=== PATIENT | female | born 1950 | race Caucasian/White ===

== ENCOUNTER → 2017-11-21 | Outpatient (CLI) | payer MEDICARE, BC ==
--- NOTE | 2017-11-22 10:08 | MM ---
Reason for exam: screening (asymptomatic). Last mammogram was performed 2 years and 3 months ago. History: Patient is postmenopausal. Physical Findings: A clinical breast exam by your physician is recommended on an annual basis and results should be correlated with mammographic findings. MG 3D Screening Mammo W/Cad Bilateral CC and MLO view(s) were taken. Prior study comparison: August 10, 2015, bilateral MG screening mammo w CAD. August 06, 2014, bilateral MG screening mammo w CAD. There are scattered fibroglandular densities. There is chronic nodularity in the right breast. Asymmetric breast tissue in the left breast is stable. There is no discrete abnormality. ASSESSMENT: Benign, BI-RAD 2 RECOMMENDATION: Routine screening mammogram of both breasts in 1 year.
== END | disposition home or self-care (01) ==
LOC: RADMAMWWP 13:22
PROVIDERS: ATTEND Family Medicine
DX: Z12.31 Encounter for screening mammogram for malignant neoplasm of breast (principal)
CPT/HCPCS: 77063; 77067

== ENCOUNTER → 2019-04-23 | Outpatient (CLI) | payer MEDICARE ==
--- NOTE | 2019-04-24 14:02 | MM ---
Reason for exam: screening (asymptomatic). Last mammogram was performed 1 year and 5 months ago. History: Patient is postmenopausal. Physical Findings: A clinical breast exam by your physician is recommended on an annual basis and results should be correlated with mammographic findings. MG 3D Screening Mammo W/Cad Bilateral CC and MLO view(s) were taken. Prior study comparison: November 21, 2017, bilateral MG 3d screening mammo w/cad. August 10, 2015, bilateral MG screening mammo w CAD. There are scattered fibroglandular densities. There is a stable circumscribed right anterior depth lower outer quadrant mass. No suspicious abnormality. No significant changes when compared with prior studies. ASSESSMENT: Benign, BI-RAD 2 RECOMMENDATION: Routine screening mammogram of both breasts in 1 year.
== END | disposition home or self-care (01) ==
LOC: RADMAMWWP 16:48
PROVIDERS: ATTEND Family Medicine
DX: Z12.31 Encounter for screening mammogram for malignant neoplasm of breast (principal)
CPT/HCPCS: 77063; 77067

== ENCOUNTER → 2020-11-12 | Outpatient (CLI) | payer MEDICARE ==
--- NOTE | 2020-11-16 09:16 | MM ---
Reason for exam: screening (asymptomatic). Last mammogram was performed 1 year and 7 months ago. History: Patient is postmenopausal. Physical Findings: A clinical breast exam by your physician is recommended on an annual basis and results should be correlated with mammographic findings. MG 3D Screening Mammo W/Cad Bilateral CC and MLO view(s) were taken. Prior study comparison: April 23, 2019, bilateral MG 3d screening mammo w/cad. November 21, 2017, bilateral MG 3d screening mammo w/cad. The breast tissue is almost entirely fat. Previous mammotome biopsy in the right breast. There is chronic nodularity in the right breast. ASSESSMENT: Benign, BI-RAD 2 RECOMMENDATION: Routine screening mammogram of both breasts in 1 year.
== END | disposition home or self-care (01) ==
LOC: RADMAMWWP 11:33
PROVIDERS: ATTEND Family Medicine
DX: Z12.31 Encounter for screening mammogram for malignant neoplasm of breast (principal)
CPT/HCPCS: 77063; 77067

== ENCOUNTER 2021-02-07 16:04 | Emergency (ER) | payer MEDICARE ==
[2021-02-07 16:27] VITALS: RESP 18
--- NOTE | 2021-02-07 16:55 | ED ---
General Adult HPI - General Chief complaint: Upper Respiratory Infection Stated complaint: fever/cough/headache Time Seen by Provider: 02/07/21 16:27 Source: patient Mode of arrival: ambulatory Limitations: no limitations - History of Present Illness Initial comments: Dictation was produced using [employer] dictation software. please excuse any grammatical, word or spelling errors. This patient was cared for during a federal and state declared state of emergency secondary to Covid 19 Chief Complaint: 70-year-old female presents to the emergency department for Covid testing History of Present Illness: 70-year-old female presents to the emergency department for Covid testing. Patient having symptoms for approximately 7-10 days. Patient has been having cough, shortness of breath and fevers. Patient spoke about this with her primary care doctor and was directed to the emergency department to be evaluated. The ROS documented in this emergency department record has been reviewed and confirmed by me. Those systems with pertinent positive or negative responses have been documented in the HPI. All other systems are other negative and/or noncontributory. PHYSICAL EXAM: General Impression: Alert and oriented x3, not in acute distress HEENT: Normocephalic atraumatic, extra-ocular movements intact, pupils equal and reactive to light bilaterally, mucous membranes moist. Cardiovascular: Heart regular rate and rhythm Chest: Able to complete full sentences, no retractions, no tachypnea Abdomen: abdomen soft, non-tender, non-distended, no organomegaly Musculoskeletal: Pulses present and equal in all extremities, no peripheral edema Motor: no focal deficits noted Neurological: CN II-XII grossly intact, no focal motor or sensory deficits noted Skin: Intact with no visualized rashes Psych: Normal affect and mood ED course: 70-year-old female presents emergency department for Covid testing. Signs upon arrival are within acceptable limits. Patient is not hypoxic or tachycardic. Current test is negative. Chest x-ray is nonacute. Patient's clinical presentation consistent with upper respiratory infection. Patient be discharged. - Related Data Home Medications Medication Instructions Recorded Confirmed Aspirin EC [Ecotrin Low Dose] 81 mg PO DAILY 03/18/14 08/29/16 Simvastatin [Zocor] 20 mg PO DAILY 03/18/14 08/29/16 Multivit with Calcium,Iron,Min 1 tab PO DAILY 08/21/16 08/29/16 [Women's Daily Multivitamin] atenoloL [Tenormin] 100 mg PO DAILY 08/21/16 08/29/16 Previous Rx's Medication Instructions Recorded QUEtiapine [SEROquel] 200 mg PO HS #30 tab 08/28/16 Allergies Allergy/AdvReac Type Severity Reaction Status Date / Time No Known Allergies Allergy Verified 02/07/21 16:26 Review of Systems ROS Statement: Those systems with pertinent positive or pertinent negative responses have been documented in the HPI. ROS Other: All systems not noted in ROS Statement are negative. Past Medical History Past Medical History: Hyperlipidemia, Hypertension History of Any Multi-Drug Resistant Organisms: None Reported Past Surgical History: Appendectomy, Hysterectomy Additional Past Surgical History / Comment(s): Partial hysterectomy, appendectomy, colonoscopy was 6 years ago was normal. Past Psychological History: Anxiety, Schizoaffective Disorder, Schizophrenia Smoking Status: Never smoker Past Alcohol Use History: None Reported Past Drug Use History: None Reported - Past Family History Mother Family Medical History: No Reported History (Mother at age of 88 from old age.) Father Family Medical History: No Reported History (Father at age of 88 from old age.) Brother(s) Family Medical History: Diabetes Mellitus (Patient had 2 brothers one of them is alive the other one in [facility] from diabetes complications.) Sister(s) Family Medical History: No Reported History (Patient has one sister no major medical problems) Son(s) Family Medical History: No Reported History (Patient has 2 sons no major medical problems) Daughter(s) Family Medical History: No Reported History (Patient has one daughter no major medical problems) General Exam Limitations: no limitations Course Vital Signs 02/07/21 02/07/21 16:24 17:27 Temperature 98.4 F 98 F Pulse Rate 90 85 Respiratory 18 18 Rate Blood Pressure 188/76 189/79 O2 Sat by Pulse 96 97 Oximetry Medical Decision Making - Lab Data Lab Results 02/07/21 Range/Units 16:36 Coronavirus (PCR) Not Detected (Not Detectd) Disposition Clinical Impression: URI (upper respiratory infection) Disposition: HOME SELF-CARE Condition: Good Instructions (If sedation given, give patient instructions): Upper Respiratory Infection (ED) Is patient prescribed a controlled substance at d/c from ED?: No Referrals: Tino Snow MD [Primary Care Provider] - 1-2 days Time of Disposition: 17:35
--- NOTE | 2021-02-07 17:26 | XR ---
EXAMINATION TYPE: XR chest 1V portable DATE OF EXAM: 02/07/2021 COMPARISON: Chest x-ray dated 06/19/2015 HISTORY: Upper respiratory infection TECHNIQUE: Single frontal view of the chest is obtained. FINDINGS: There is no focal air space opacity, pleural effusion, or pneumothorax seen. The cardiac silhouette size is within normal limits, stable. Patient is rotated. There is eventration of right he midiaphragm as on prior exam. The osseous structures are intact. IMPRESSION: No acute process.
[2021-02-07 17:32] VITALS: BP 189/79; PULSE 85; TEMP 98
== END 2021-02-07 17:43 | disposition home or self-care (01) ==
LOC: EC 16:04
DX: J06.9 Acute upper respiratory infection, unspecified (principal); E78.5 Hyperlipidemia, unspecified; I10 Essential (primary) hypertension; F25.9 Schizoaffective disorder, unspecified; Z90.89 Acquired absence of other organs; Z90.710 Acquired absence of both cervix and uterus; Z79.82 Long term (current) use of aspirin; Z20.822 Contact with and (suspected) exposure to COVID-19
CPT/HCPCS: 71045; 87635; 99285

== ENCOUNTER 2021-04-19 18:56 | Emergency (ER) | payer MEDICARE ==
[2021-04-19 19:09] VITALS: BP 164/85; PULSE 61; RESP 20; TEMP 98.4
[2021-04-19] MEDS ORDERED: PANTOPRAZOLE 40 MG/10 ML VIAL IVP STA (19:49)
--- NOTE | 2021-04-19 19:51 | ED ---
General Adult HPI - General Chief complaint: Recheck/Abnormal Lab/Rx Stated complaint: vomited blood Time Seen by Provider: 04/19/21 19:26 Source: patient Mode of arrival: ambulatory Limitations: no limitations - History of Present Illness Initial comments: 70-year-old female presents to the emergency room for a chief complaint of spitting out blood. Patient reports around 17 hours ago or 2 AM she woke up. She went to spit in the sink and spit out blood. Patient states this did happen once before but it was several years ago. Patient denies cough. Denies nausea vomiting. Denies any abdominal pain. Patient did not have any recurrent episodes of this. Patient wanted to wait until her son was out of work so we could bring her here to the ER. Patient denies any dark or red stools. Denies lightheadedness. Denies chest pain or shortness of breath. Patient has no other complaints at this time including shortness of breath, chest pain, a bdominal pain, nausea or vomiting, headache, or visual changes. - Related Data Home Medications Medication Instructions Recorded Confirmed Aspirin EC [Ecotrin Low Dose] 81 mg PO DAILY 03/18/14 04/19/21 Simvastatin [Zocor] 20 mg PO HS 03/18/14 04/19/21 atenoloL [Tenormin] 100 mg PO DAILY 08/21/16 04/19/21 Losartan Potassium [Cozaar] 50 mg PO DAILY 04/19/21 04/19/21 Thioridazine HCl [Mellaril] 50 mg PO HS 04/19/21 04/19/21 Vitamin B Complex 1 cap PO DAILY 04/19/21 04/19/21 Allergies Allergy/AdvReac Type Severity Reaction Status Date / Time No Known Allergies Allergy Verified 04/19/21 19:52 Review of Systems ROS Statement: Those systems with pertinent positive or pertinent negative responses have been documented in the HPI. ROS Other: All systems not noted in ROS Statement are negative. Past Medical History Past Medical History: Hyperlipidemia, Hypertension History of Any Multi-Drug Resistant Organisms: None Reported Past Surgical History: Appendectomy, Hysterectomy Additional Past Surgical History / Comment(s): Partial hysterectomy, appendectomy, colonoscopy was 6 years ago was normal. Past Psychological History: Anxiety, Schizoaffective Disorder, Schizophrenia Smoking Status: Never smoker Past Alcohol Use History: Rare Past Drug Use History: None Reported - Past Family History Mother Family Medical History: No Reported History (Mother at age of 88 from old age.) Father Family Medical History: No Reported History (Father at age of 88 from old age.) Brother(s) Family Medical History: Diabetes Mellitus (Patient had 2 brothers one of them is alive the other one in [facility] from diabetes complications.) Sister(s) Family Medical History: No Reported History (Patient has one sister no major medical problems) Son(s) Family Medical History: No Reported History (Patient has 2 sons no major medical problems) Daughter(s) Family Medical History: No Reported History (Patient has one daughter no major medical problems) General Exam Limitations: no limitations General appearance: alert, in no apparent distress Head exam: Present: atraumatic, normocephalic, normal inspection Eye exam: Present: normal appearance, PERRL, EOMI. Absent: scleral icterus, conjunctival injection, periorbital swelling ENT exam: Present: normal exam, mucous membranes moist Neck exam: Present: normal inspection, full ROM. Absent: tenderness Respiratory exam: Present: normal lung sounds bilaterally. Absent: respiratory distress, wheezes Cardiovascular Exam: Present: regular rate, normal rhythm, normal heart sounds GI/Abdominal exam: Present: soft, normal bowel sounds. Absent: distended, tenderness, guarding, rebound, rigid Course Vital Signs 04/19/21 19:06 Temperature 98.4 F Pulse Rate 61 Respiratory 20 Rate Blood Pressure 164/85 O2 Sat by Pulse 98 Oximetry Medical Decision Making - Medical Decision Making Vitals are stable. Patient is well-appearing. Patient denies coughing up blood or throwing up blood. Just states that she spit it out in the sink earlier today. No recurrent episodes. CBC unremarkable. Hemoglobin stable at 13. CMP unremarkable. Chest x-ray shows no acute process. At this time patient is stable for outpatient follow-up. She can return here for any worsening symptoms. - Lab Data Result diagrams: 04/19/21 20:26 04/19/21 20:26 Lab Results 04/19/21 04/19/21 Range/Units 20:26 20:26 WBC 7.0 (3.8-10.6) k/uL RBC 4.03 (3.80-5.40) m/uL Hgb 13.0 (11.4-16.0) gm/dL Hct 39.2 (34.0-46.0) % MCV 97.4 (80.0-100.0) fL MCH 32.2 (25.0-35.0) pg MCHC 33.0 (31.0-37.0) g/dL RDW 12.8 (11.5-15.5) % Plt Count 198 (150-450) k/uL MPV 9.0 Neutrophils % 55 % Lymphocytes % 33 % Monocytes % 6 % Eosinophils % 4 % Basophils % 1 % Neutrophils # 3.8 (1.3-7.7) k/uL Lymphocytes # 2.3 (1.0-4.8) k/uL Monocytes # 0.4 (0-1.0) k/uL Eosinophils # 0.3 (0-0.7) k/uL Basophils # 0.1 (0-0.2) k/uL Sodium 139 (137-145) mmol/L Potassium 4.5 (3.5-5.1) mmol/L Chloride 104 (98-107) mmol/L Carbon Dioxide 31 H (22-30) mmol/L Anion Gap 4 mmol/L BUN 14 (7-17) mg/dL Creatinine 0.83 (0.52-1.04) mg/dL Est GFR (CKD-EPI)AfAm 83 (>60 ml/min/1.73 sqM) Est GFR (CKD-EPI)NonAf 72 (>60 ml/min/1.73 sqM) Glucose 98 (74-99) mg/dL Calcium 9.4 (8.4-10.2) mg/dL Total Bilirubin 0.3 (0.2-1.3) mg/dL AST 34 (14-36) U/L ALT 11 (4-34) U/L Alkaline Phosphatase 70 (38-126) U/L Total Protein 7.1 (6.3-8.2) g/dL Albumin 4.2 (3.5-5.0) g/dL Disposition Clinical Impression: Hemoptysis Disposition: HOME SELF-CARE Condition: Good Instructions (If sedation given, give patient instructions): Hemoptysis (ED) Additional Instructions: Please follow-up with your doctor in one to 2 days. Return to the emergency room for any worsening symptoms. Is patient prescribed a controlled substance at d/c from ED?: No Referrals: Tino Snow MD [Primary Care Provider] - 1-2 days Time of Disposition: 21:16
--- NOTE | 2021-04-19 20:18 | XR ---
EXAMINATION TYPE: XR chest 2V DATE OF EXAM: 04/19/2021 COMPARISON: 02/07/2021 HISTORY: Hemoptysis TECHNIQUE: 2 views FINDINGS: Heart and mediastinum are normal. Lungs are clear. Diaphragm is normal. Bony thorax appears normal. IMPRESSION: Normal chest. No change.
[2021-04-19 20:46] LABS: Basophils # (A) 0.1 k/uL (0-0.2); Basophils % (A) 1 %; Eosinophils # (A) 0.3 k/uL (0-0.7); Eosinophils % (A) 4 %; HCT 39.2 % (34.0-46.0); Lymphocytes # (A) 2.3 k/uL (1.0-4.8); Lymphocytes % (A) 33 %; MCH 32.2 pg (25.0-35.0); MCV 97.4 fL (80.0-100.0); Monocytes # (A) 0.4 k/uL (0-1.0); Monocytes % (A) 6 %; Neutrophils # (A) 3.8 k/uL (1.3-7.7); Neutrophils % (A) 55 %; Platelet Count 198 k/uL (150-450); RBC 4.03 m/uL (3.80-5.40); RDW 12.8 % (11.5-15.5)
[2021-04-19 21:11] LABS: Albumin 4.2 g/dL (3.5-5.0); Calcium 9.4 mg/dL (8.4-10.2); Potassium 4.5 mmol/L (3.5-5.1); Total Bilirubin 0.3 mg/dL (0.2-1.3); Total Protein 7.1 g/dL (6.3-8.2)
== END 2021-04-19 21:30 | disposition home or self-care (01) ==
LOC: EC 18:56
DX: R04.2 Hemoptysis (principal); I10 Essential (primary) hypertension; E78.5 Hyperlipidemia, unspecified; F25.9 Schizoaffective disorder, unspecified; Z79.82 Long term (current) use of aspirin; Z79.899 Other long term (current) drug therapy; Z83.3 Family history of diabetes mellitus
CPT/HCPCS: 96374; 99285; 36415; 80053; 85025; 71046; C9113

== ENCOUNTER 2021-09-03 17:27 | Emergency (ER) | payer MEDICARE ==
--- NOTE | 2021-09-03 21:31 | XR ---
EXAMINATION TYPE: XR chest 2V DATE OF EXAM: 09/03/2021 COMPARISON: 04/19/2021 HISTORY: Cough TECHNIQUE: FINDINGS: Heart and mediastinum are normal. Lungs are clear of infiltrate. There is slight blunting o f the posterior costophrenic angles on the lateral view. There are no hilar masses. Bony thorax is in tact. IMPRESSION: Minimal posterior pleural reaction is similar to old exam. Normal heart.
--- NOTE | 2021-09-03 21:35 | ED ---
URI HPI - General Chief Complaint: Upper Respiratory Infection Stated Complaint: SOB Time Seen by Provider: 09/03/21 19:15 Source: patient, RN notes reviewed Mode of arrival: ambulatory Limitations: no limitations - History of Present Illness Initial Comments: Patient is a 71-year-old female that presents to the emergency department complaining of upper respiratory tract symptoms for the past couple days. She notes she has a cough. Patient denied any other issues or complaints. She was otherwise well-appearing. She can emergency room to get evaluated for Covid. She denied chest pain shortness of breath headache nausea vomiting diarrhea constipation fever fatigue chills. - Related Data Home Medications Medication Instructions Recorded Confirmed Aspirin EC [Ecotrin Low Dose] 81 mg PO DAILY@1500 03/18/14 09/03/21 Simvastatin [Zocor] 20 mg PO HS 03/18/14 09/03/21 atenoloL [Tenormin] 100 mg PO DAILY 08/21/16 09/03/21 Losartan Potassium [Cozaar] 50 mg PO DAILY 04/19/21 09/03/21 Thioridazine HCl [Mellaril] 50 mg PO HS 04/19/21 09/03/21 Vitamin B Complex 1 cap PO DAILY@1500 04/19/21 09/03/21 Allergies Allergy/AdvReac Type Severity Reaction Status Date / Time No Known Allergies Allergy Verified 09/03/21 20:58 Review of Systems ROS Statement: Those systems with pertinent positive or pertinent negative responses have been documented in the HPI. ROS Other: All systems not noted in ROS Statement are negative. Past Medical History Past Medical History: Hyperlipidemia, Hypertension History of Any Multi-Drug Resistant Organisms: None Reported Past Surgical History: Appendectomy, Hysterectomy Additional Past Surgical History / Comment(s): Partial hysterectomy, appendectom y, colonoscopy was 6 years ago was normal. Past Psychological History: Anxiety, Schizoaffective Disorder, Schizophrenia Smoking Status: Never smoker Past Alcohol Use History: Rare Past Drug Use History: None Reported - Past Family History Mother Family Medical History: No Reported History (Mother at age of 88 from old age.) Father Family Medical History: No Reported History (Father at age of 88 from old age.) Brother(s) Family Medical History: Diabetes Mellitus (Patient had 2 brothers one of them is alive the other one in [facility] from diabetes complications.) Sister(s) Family Medical History: No Reported History (Patient has one sister no major medical problems) Son(s) Family Medical History: No Reported History (Patient has 2 sons no major medical problems) Daughter(s) Family Medical History: No Reported History (Patient has one daughter no major medical problems) General Exam Limitations: no limitations General appearance: alert, in no apparent distress, obese Head exam: Present: atraumatic, normocephalic, normal inspection Eye exam: Present: normal appearance, PERRL, EOMI. Absent: scleral icterus, conjunctival injection, periorbital swelling ENT exam: Present: normal exam, mucous membranes moist Neck exam: Present: normal inspection Respiratory exam: Present: normal lung sounds bilaterally. Absent: respiratory distress, wheezes, rales, rhonchi, stridor Cardiovascular Exam: Present: regular rate, normal rhythm, normal heart sounds. Absent: systolic murmur, diastolic murmur, rubs, gallop, clicks Extremities exam: Present: normal inspection, full ROM, normal capillary refill. Absent: tenderness, pedal edema, joint swelling, calf tenderness Neurological exam: Present: alert, oriented X3 Psychiatric exam: Present: normal affect, normal mood Skin exam: Present: warm, dry, intact, normal color. Absent: rash Course Vital Signs 09/03/21 09/03/21 17:38 20:16 Temperature 98.6 F 97.8 F Pulse Rate 76 74 Respiratory 20 20 Rate Blood Pressure 186/102 178/75 O2 Sat by Pulse 98 96 Oximetry Medical Decision Making - Medical Decision Making 71-year-old female with a cough for the past several days. Covid test, chest and she ordered. Covid test negative. Chest x-ray shows no change from previous study. Patient most likely has an upper respiratory tract infection caused by another virus other than Covid. Case discussed with Dr. Aguiar, patient discharge home with conservative management and follow-up to primary care. - Lab Data Lab Results 09/03/21 Range/Units 17:43 Coronavirus (PCR) Not Detected (Not Detectd) - Radiology Data Radiology results: report reviewed, image reviewed Chest x-ray: Minimal posterior pleural reaction is similar to old exam normal heart. Disposition Clinical Impression: Acute upper respiratory infection Disposition: HOME SELF-CARE Condition: Stable Instructions (If sedation given, give patient instructions): Upper Respiratory Infection (ED) Additional Instructions: Please return to the Emergency Department if symptoms worsen or any other concerns. Follow-up with primary care 1 to 2 days. Take Tylenol Motrin as needed for any aches pains or fevers. Can take [id number] cough medicine as needed. Is patient prescribed a controlled substance at d/c from ED?: No Referrals: Tino Snow MD [Primary Care Provider] - 1-2 days Time of Disposition: 21:35
[2021-09-03 21:42] VITALS: BP 168/74; PULSE 87; RESP 19; TEMP 98.4
== END 2021-09-03 21:39 | disposition home or self-care (01) ==
LOC: EC 17:27
DX: J06.9 Acute upper respiratory infection, unspecified (principal); I10 Essential (primary) hypertension; E78.5 Hyperlipidemia, unspecified; F41.9 Anxiety disorder, unspecified; F25.9 Schizoaffective disorder, unspecified; Z20.822 Contact with and (suspected) exposure to COVID-19; Z79.82 Long term (current) use of aspirin; Z90.49 Acquired absence of other specified parts of digestive tract; Z90.710 Acquired absence of both cervix and uterus
CPT/HCPCS: 71046; 87635; 99283

== ENCOUNTER 2021-09-06 12:13 | Emergency (ER) | payer MEDICARE ==
[2021-09-06 13:12] VITALS: RESP 18; TEMP 98.8
[2021-09-06] MEDS ORDERED: ALBUTEROL HFA INHALER INHALATION STA (14:01)
--- NOTE | 2021-09-06 14:01 | ED ---
General Adult HPI - General Chief complaint: Upper Respiratory Infection Stated complaint: revisit - SOB, congestion Time Seen by Provider: 09/06/21 13:31 Source: patient Mode of arrival: ambulatory Limitations: no limitations - History of Present Illness Initial comments: 71-year-old female with a past medical history of hyperlipidemia, hypertension presents to the emergency room for shortness of breath. Patient developed shortness of breath 5 days ago or so. She also has a cough. States her ribs hurt when she coughs. States she was seen here a couple days ago and tested negative for COVID-19 and had a normal x-ray. However her symptoms are persisting. She is afebrile.Patient has no other complaints at this time including chest pain, abdominal pain, nausea or vomiting, headache, or visual changes. - Related Data Home Medications Medication Instructions Recorded Confirmed Aspirin EC [Ecotrin Low Dose] 81 mg PO DAILY@1500 03/18/14 09/03/21 Simvastatin [Zocor] 20 mg PO HS 03/18/14 09/03/21 atenoloL [Tenormin] 100 mg PO DAILY 08/21/16 09/03/21 Losartan Potassium [Cozaar] 50 mg PO DAILY 04/19/21 09/03/21 Thioridazine HCl [Mellaril] 50 mg PO HS 04/19/21 09/03/21 Vitamin B Complex 1 cap PO DAILY@1500 04/19/21 09/03/21 Previous Rx's Medication Instructions Recorded Albuterol Inhaler [Ventolin Hfa 2 puff INHALATION RT-QID PRN #8 gm 09/06/21 Inhaler] Azithromycin [Zithromax Z-pack (6 250 mg PO DIRECTED #6 tab 09/06/21 tabs)] predniSONE 50 mg PO DAILY #5 tablet 09/06/21 Allergies Allergy/AdvReac Type Severity Reaction Status Date / Time No Known Allergies Allergy Verified 09/06/21 13:13 Review of Systems ROS Statement: Those systems with pertinent positive or pertinent negative responses have been documented in the HPI. ROS Other: All systems not noted in ROS Statement are negative. Past Medical History Past Medical History: Hyperlipidemia, Hypertension History of Any Multi-Drug Resistant Organisms: None Reported Past Surgical History: Appendectomy, Hysterectomy Additional Past Surgical History / Comment(s): Partial hysterectomy, appendectomy, colonoscopy was 6 years ago was normal. Past Psychological History: Anxiety, Schizoaffective Disorder, Schizophrenia Smoking Status: Never smoker Past Alcohol Use History: Rare Past Drug Use History: None Reported - Past Family History Mother Family Medical History: No Reported History (Mother at age of 88 from old age.) Father Family Medical History: No Reported History (Father at age of 88 from old age.) Brother(s) Family Medical History: Diabetes Mellitus (Patient had 2 brothers one of them is alive the other one in [facility] from diabetes complications.) Sister(s) Family Medical History: No Reported History (Patient has one sister no major medical problems) Son(s) Family Medical History: No Reported History (Patient has 2 sons no major medical problems) Daughter(s) Family Medical History: No Reported History (Patient has one daughter no major medical problems) General Exam Limitations: no limitations General appearance: alert, in no apparent distress Head exam: Present: atraumatic Eye exam: Present: normal appearance, PERRL, EOMI. Absent: scleral icterus, conjunctival injection ENT exam: Present: normal exam, mucous membranes moist Neck exam: Present: normal inspection, full ROM. Absent: tenderness Respiratory exam: Present: decreased breath sounds. Absent: respiratory distress, wheezes, rales, rhonchi Cardiovascular Exam: Present: regular rate, normal rhythm, normal heart sounds GI/Abdominal exam: Present: soft, normal bowel sounds. Absent: distended, tenderness Neurological exam: Present: alert Course Vital Signs 09/06/21 13:09 Temperature 98.8 F Pulse Rate 65 Respiratory 18 Rate Blood Pressure 129/88 O2 Sat by Pulse 96 Oximetry EKG Findings - EKG Comments: EKG Findings:: Normal sinus rhythm, ventricular rate 60, ME interval 160, QTC 424 Medical Decision Making - Medical Decision Making vitals are stable. CBC and CMP are unremarkable. EKG does not show any ST elevation in troponin is negative. Patient does not have any typical chest pain and only has pain when she coughs. COVID-19 again negative. CTA was obtained which showed no evidence of PE. However there are small bilateral effusions with basilar atelectasis favored over pneumonia. Bronchiectasis. There is also a small pulmonary nodule that needs to have follow-up. Patient aware of this. Patient was given antibiotics as she has had a cough and shortness of breath for almost a week and there is the possibility of pneumonia on CT. She was also started on steroids and an inhaler for her decreased lung sounds. She will follow up with her doctor. She will return here for any worsening symptoms. - Lab Data Result diagrams: 09/06/21 14:36 09/06/21 14:36 Lab Results 09/06/21 09/06/21 09/06/21 Range/Units 14:09 14:36 14:36 WBC 5.2 (3.8-10.6) k/uL RBC 4.11 (3.80-5.40) m/uL Hgb 13.3 (11.4-16.0) gm/dL Hct 40.2 (34.0-46.0) % MCV 97.8 (80.0-100.0) fL MCH 32.3 (25.0-35.0) pg MCHC 33.1 (31.0-37.0) g/dL RDW 11.9 (11.5-15.5) % Plt Count 173 (150-450) k/uL MPV 8.9 Neutrophils % 57 % Lymphocytes % 30 % Monocytes % 7 % Eosinophils % 3 % Basophils % 1 % Neutrophils # 3.0 (1.3-7.7) k/uL Lymphocytes # 1.6 (1.0-4.8) k/uL Monocytes # 0.4 (0-1.0) k/uL Eosinophils # 0.2 (0-0.7) k/uL Basophils # 0.0 (0-0.2) k/uL PT 9.6 (9.0-12.0) sec INR 0.9 (<1.2) APTT 23.8 (22.0-30.0) sec D-Dimer 0.80 H (<0.60) mg/L FEU Sodium (137-145) mmol/L Potassium (3.5-5.1) mmol/L Chloride (98-107) mmol/L Carbon Dioxide (22-30) mmol/L Anion Gap mmol/L BUN (7-17) mg/dL Creatinine (0.52-1.04) mg/dL Est GFR (CKD-EPI)AfAm (>60 ml/min/1.73 sqM) Est GFR (CKD-EPI)NonAf (>60 ml/min/1.73 sqM) Glucose (74-99) mg/dL Calcium (8.4-10.2) mg/dL Total Bilirubin (0.2-1.3) mg/dL AST (14-36) U/L ALT (4-34) U/L Alkaline Phosphatase (38-126) U/L Troponin I (0.000-0.034) ng/mL NT-Pro-B Natriuret Pep pg/mL Total Protein (6.3-8.2) g/dL Albumin (3.5-5.0) g/dL Coronavirus (PCR) Not Detected (Not Detectd) 09/06/21 09/06/21 09/06/21 Range/Units 14:36 14:36 14:36 WBC (3.8-10.6) k/uL RBC (3.80-5.40) m/uL Hgb (11.4-16.0) gm/dL Hct (34.0-46.0) % MCV (80.0-100.0) fL MCH (25.0-35.0) pg MCHC (31.0-37.0) g/dL RDW (11.5-15.5) % Plt Count (150-450) k/uL MPV Neutrophils % % Lymphocytes % % Monocytes % % Eosinophils % % Basophils % % Neutrophils # (1.3-7.7) k/uL Lymphocytes # (1.0-4.8) k/uL Monocytes # (0-1.0) k/uL Eosinophils # (0-0.7) k/uL Basophils # (0-0.2) k/uL PT (9.0-12.0) sec INR (<1.2) APTT (22.0-30.0) sec D-Dimer (<0.60) mg/L FEU Sodium 137 (137-145) mmol/L Potassium 4.6 (3.5-5.1) mmol/L Chloride 99 (98-107) mmol/L Carbon Dioxide 26 (22-30) mmol/L Anion Gap 12 mmol/L BUN 15 (7-17) mg/dL Creatinine 0.90 (0.52-1.04) mg/dL Est GFR (CKD-EPI)AfAm 74 (>60 ml/min/1.73 sqM) Est GFR (CKD-EPI)NonAf 64 (>60 ml/min/1.73 sqM) Glucose 105 H (74-99) mg/dL Calcium 9.4 (8.4-10.2) mg/dL Total Bilirubin 0.5 (0.2-1.3) mg/dL AST 38 H (14-36) U/L ALT 10 (4-34) U/L Alkaline Phosphatase 81 (38-126) U/L Troponin I <0.012 (0.000-0.034) ng/mL NT-Pro-B Natriuret Pep 90 pg/mL Total Protein 8.0 (6.3-8.2) g/dL Albumin 4.4 (3.5-5.0) g/dL Coronavirus (PCR) (Not Detectd) Disposition Clinical Impression: Pneumonia, Pulmonary nodule, Cough Disposition: HOME SELF-CARE Condition: Good Instructions (If sedation given, give patient instructions): Pneumonia (ED) Additional Instructions: Please take medications as directed. Follow-up with your doctor to recheck your symptoms as well as follow up for pulmonary nodule. Return to the emergency room for any worsening symptoms. Prescriptions: predniSONE 50 mg PO DAILY #5 tablet Albuterol Inhaler [Ventolin Hfa Inhaler] 2 puff INHALATION RT-QID PRN #8 gm PRN Reason: Shortness Of Breath Azithromycin [Zithromax Z-pack (6 tabs)] 250 mg PO DIRECTED #6 tab Is patient prescribed a controlled substance at d/c from ED?: No Referrals: Tino Snow MD [Primary Care Provider] - 1-2 days Time of Disposition: 16:54
[2021-09-06 14:51] LABS: Basophils % (A) 1 %; Eosinophils # (A) 0.2 k/uL (0-0.7); Eosinophils % (A) 3 %; HCT 40.2 % (34.0-46.0); HGB 13.3 gm/dL (11.4-16.0); Lymphocytes # (A) 1.6 k/uL (1.0-4.8); Lymphocytes % (A) 30 %; MCH 32.3 pg (25.0-35.0); MCHC 33.1 g/dL (31.0-37.0); MCV 97.8 fL (80.0-100.0); Mean Platelet Volume 8.9; Monocytes # (A) 0.4 k/uL (0-1.0); Monocytes % (A) 7 %; Neutrophils % (A) 57 %; Platelet Count 173 k/uL (150-450); RBC 4.11 m/uL (3.80-5.40); RDW 11.9 % (11.5-15.5); WBC 5.2 k/uL (3.8-10.6)
[2021-09-06 14:59] LABS: Albumin 4.4 g/dL (3.5-5.0); Calcium 9.4 mg/dL (8.4-10.2); Total Bilirubin 0.5 mg/dL (0.2-1.3)
[2021-09-06 15:00] LABS: Potassium 4.6 mmol/L (3.5-5.1)
[2021-09-06 15:11] LABS: INR 0.9 (<1.2); Partial Thromboplastin Time 23.8 sec (22.0-30.0); Prothrombin Time 9.6 sec (9.0-12.0)
--- NOTE | 2021-09-06 15:33 | XR ---
EXAMINATION TYPE: XR chest 2V DATE OF EXAM: 09/06/2021 COMPARISON: Chest x-ray dated 09/03/2021 HISTORY: Difficulty breathing TECHNIQUE: Frontal and lateral views of the chest are obtained. FINDINGS: There is no focal air space opacity, pleural effusion, or pneumothorax seen. Right hemidia phragm is elevated as on prior. Hyperinflation may be indicative of underlying COPD. The cardiac silh ouette size is within normal limits. There is stable appearance of the bones. There are overlying a rtifacts. The osseous structures are intact. IMPRESSION: No acute cardiopulmonary process.
--- NOTE | 2021-09-06 16:12 | CT ---
EXAMINATION TYPE: CT chest angio for PE DATE OF EXAM: 09/06/2021 COMPARISON: None HISTORY: Shortness of breath and cough x5 days. CT DLP: 348 mGycm Automated exposure control for dose reduction was used. CONTRAST: CT Chest for pulmonary embolism performed with with IV Contrast, patient injected with 100ml mL of Is ovue 370. FINDINGS: LUNGS: Mild hyperinflation. Mild central bronchiectasis and there are small bilateral pleural effusio ns. Subsegmental consolidation is involving the lung bases most typical of atelectasis. There is a 7 mm nodule in the left lower lobe. Subpleural nodularity right lung apex measuring 5 mm. MEDIASTINUM: There is satisfactory enhancement of the pulmonary artery and its branches, there is no CT evidence for pulmonary embolism. There are no greater than 1 cm hilar or mediastinal lymph nodes. No pericardial effusion is seen. OTHER: There is a hiatal hernia. Hypertrophic and degenerative changes spine. IMPRESSION: 1. No CT evidence of pulmonary embolism. 2. Small bilateral effusions with basilar atelectasis favored over pneumonia. 3. Bronchiectasis. 4. There is a subcentimeter pulmonary nodules too small to characterize for which show 3-6 month foll ow-up CT of the chest is recommended to confirm stability.
[2021-09-06] MEDS ORDERED: cefTRIAXone IN SWFI 1,000 MG/10 ML SYRINGE IVP STA (16:50)
[2021-09-06 17:21] VITALS: BP 168/77; PULSE 68
== END 2021-09-06 17:22 | disposition home or self-care (01) ==
LOC: EC 12:13
DX: J18.9 Pneumonia, unspecified organism (principal); R91.1 Solitary pulmonary nodule; I10 Essential (primary) hypertension; E78.5 Hyperlipidemia, unspecified; Z20.822 Contact with and (suspected) exposure to COVID-19; Z79.899 Other long term (current) drug therapy; Z79.82 Long term (current) use of aspirin
CPT/HCPCS: 36415; 94640; 93005; 85379; 83880; 80053; 84484; 85025; 85610; 85730; 87635; 71046; 71275; 99285; 96374; J0696; Q9967

== ENCOUNTER 2021-12-09 20:08 | Emergency (ER) | payer MEDICARE ==
[2021-12-09 20:39] VITALS: BP 202/85; PULSE 60; RESP 19; TEMP 98
--- NOTE | 2021-12-09 23:33 | ED ---
Female Urogenital HPI - General Chief complaint: Vaginal Bleeding Stated complaint: Irregular bleeding Time Seen by Provider: 12/09/21 23:32 Source: patient, RN notes reviewed, old records reviewed Mode of arrival: ambulatory Limitations: no limitations - History of Present Illness Initial comments: This is a 71-year-old female to the emergency department for evaluation. Patient presents today for evaluation of vaginal bleeding currently she has some blood in her underwear that will his been before. Patient does not believe it is in the urine. MD Complaint: vaginal bleeding -: days(s) Location: perineum Severity: mild Severity scale (1-10): 2 Consistency: intermittent Improves with: none Worsens with: none Patient : No Associated Symptoms: vaginal bleeding - Related Data Sexually active: No Home Medications Medication Instructions Recorded Confirmed Aspirin EC [Ecotrin Low Dose] 81 mg PO DAILY@1500 03/18/14 09/03/21 Simvastatin [Zocor] 20 mg PO HS 03/18/14 09/03/21 atenoloL [Tenormin] 100 mg PO DAILY 08/21/16 09/03/21 Losartan Potassium [Cozaar] 50 mg PO DAILY 04/19/21 09/03/21 Thioridazine HCl [Mellaril] 50 mg PO HS 04/19/21 09/03/21 Vitamin B Complex 1 cap PO DAILY@1500 04/19/21 09/03/21 Previous Rx's Medication Instructions Recorded Albuterol Inhaler [Ventolin Hfa 2 puff INHALATION RT-QID PRN #8 gm 09/06/21 Inhaler] Azithromycin [Zithromax Z-pack (6 250 mg PO DIRECTED #6 tab 09/06/21 tabs)] predniSONE 50 mg PO DAILY #5 tablet 09/06/21 Allergies Allergy/AdvReac Type Severity Reaction Status Date / Time No Known Allergies Allergy Verified 12/09/21 20:39 Review of Systems ROS Statement: Those systems with pertinent positive or pertinent negative responses have been documented in the HPI. ROS Other: All systems not noted in ROS Statement are negative. Past Medical History Past Medical History: Hyperlipidemia, Hypertension History of Any Multi-Drug Resistant Organisms: None Reported Past Surgical History: Appendectomy, Hysterectomy Additional Past Surgical History / Comment(s): Partial hysterectomy, appendectomy, colonoscopy was 6 years ago was normal. Past Psychological History: Anxiety, Schizoaffective Disorder, Schizophrenia Smoking Status: Never smoker Past Alcohol Use History: Rare Past Drug Use History: None Reported - Past Family History Mother Family Medical History: No Reported History (Mother at age of 88 from old age.) Father Family Medical History: No Reported History (Father at age of 88 from old age.) Brother(s) Family Medical History: Diabetes Mellitus (Patient had 2 brothers one of them is alive the other one in [facility] from diabetes complications.) Sister(s) Family Medical History: No Reported History (Patient has one sister no major me dical problems) Son(s) Family Medical History: No Reported History (Patient has 2 sons no major medical problems) Daughter(s) Family Medical History: No Reported History (Patient has one daughter no major medical problems) General Exam - General Exam Comments Initial Comments: Patient does have vaginal prolapse General appearance: alert, in no apparent distress Head exam: Present: atraumatic, normocephalic, normal inspection Eye exam: Present: normal appearance, PERRL, EOMI. Absent: scleral icterus, conjunctival injection, periorbital swelling ENT exam: Present: normal exam, mucous membranes moist Neck exam: Present: normal inspection. Absent: tenderness, meningismus, lymphadenopathy Respiratory exam: Present: normal lung sounds bilaterally. Absent: respiratory distress, wheezes, rales, rhonchi, stridor Cardiovascular Exam: Present: regular rate, normal rhythm, normal heart sounds. Absent: systolic murmur, diastolic murmur, rubs, gallop, clicks GI/Abdominal exam: Present: soft, normal bowel sounds. Absent: distended, tenderness, guarding, rebound, rigid Extremities exam: Present: normal inspection, full ROM, normal capillary refill. Absent: tenderness, pedal edema, joint swelling, calf tenderness Back exam: Present: normal inspection Neurological exam: Present: alert, oriented X3, CN II-XII intact Psychiatric exam: Present: normal affect, normal mood Skin exam: Present: warm, dry, intact, normal color. Absent: rash Course Vital Signs 12/09/21 20:32 Temperature 98 F Pulse Rate 60 Respiratory 19 Rate Blood Pressure 202/85 O2 Sat by Pulse 97 Oximetry - Reevaluation(s) Reevaluation #1: 12/09/21 Medical record is reviewed Reevaluation #2: 12/09/21 Patient's uterus is reduced here in the emergency department without difficulty Reevaluation #3: 12/09/21 Patient informed of results and questions answered Reevaluation #4: 12/09/21 Spoke with family at bedside who understand questions answered Medical Decision Making - Medical Decision Making 71 female to the emergency department for evaluation. Patient presents today for evaluation regards to vaginal prolapse no active bleeding able to urinate. Glasses reduced she'll consult with [employer] [facility] can be discharged home - Lab Data Result diagrams: 12/09/21 23:55 12/09/21 23:55 Lab Results 12/09/21 12/09/21 12/09/21 Range/Units 23:50 23:55 23:55 WBC 8.6 (3.8-10.6) k/uL RBC 4.19 (3.80-5.40) m/uL Hgb 13.2 (11.4-16.0) gm/dL Hct 40.8 (34.0-46.0) % MCV 97.5 (80.0-100.0) fL MCH 31.6 (25.0-35.0) pg MCHC 32.4 (31.0-37.0) g/dL RDW 12.3 (11.5-15.5) % Plt Count 139 L (150-450) k/uL MPV 10.1 Neutrophils % 60 % Lymphocytes % 26 % Monocytes % 6 % Eosinophils % 5 % Basophils % 1 % Neutrophils # 5.2 (1.3-7.7) k/uL Lymphocytes # 2.2 (1.0-4.8) k/uL Monocytes # 0.5 (0-1.0) k/uL Eosinophils # 0.4 (0-0.7) k/uL Basophils # 0.1 (0-0.2) k/uL Sodium 139 (137-145) mmol/L Potassium 4.2 (3.5-5.1) mmol/L Chloride 107 (98-107) mmol/L Carbon Dioxide 25 (22-30) mmol/L Anion Gap 7 mmol/L BUN 23 H (7-17) mg/dL Creatinine 0.97 (0.52-1.04) mg/dL Est GFR (CKD-EPI)AfAm 68 (>60 ml/min/1.73 sqM) Est GFR (CKD-EPI)NonAf 59 (>60 ml/min/1.73 sqM) Glucose 90 (74-99) mg/dL Calcium 9.9 (8.4-10.2) mg/dL Total Bilirubin 0.5 (0.2-1.3) mg/dL AST 30 (14-36) U/L ALT 12 (4-34) U/L Alkaline Phosphatase 80 (38-126) U/L Total Protein 7.6 (6.3-8.2) g/dL Albumin 4.3 (3.5-5.0) g/dL Amylase 54 (30-110) U/L Lipase 106 (23-300) U/L Urine Color Light Yellow Urine Appearance Clear (Clear) Urine pH 5.5 (5.0-8.0) Ur Specific Mckenzie 1.021 (1.001-1.035) Urine Protein Negative (Negative) Urine Glucose (UA) Negative (Negative) Urine Ketones Negative (Negative) Urine Blood Trace H (Negative) Urine Nitrite Negative (Negative) Urine Bilirubin Negative (Negative) Urine Urobilinogen <2.0 (<2.0) mg/dL Ur Leukocyte Esterase Large H (Negative) Urine RBC 1 (0-5) /hpf Urine WBC 20 H (0-5) /hpf Ur Squamous Epith Cells <1 (0-4) /hpf Urine Bacteria Rare H (None) /hpf Urine Mucus Rare H (None) /hpf Disposition Clinical Impression: Vaginal prolapse Disposition: HOME SELF-CARE Condition: Good Instructions (If sedation given, give patient instructions): Uterine Prolapse (ED) Is patient prescribed a controlled substance at d/c from ED?: No Referrals: Tino Snow MD [Primary Care Provider] - 1-2 days Lupis Beavers MD [STAFF PHYSICIAN] - 1-2 days
[2021-12-10 00:23] LABS: Basophils # (A) 0.1 k/uL (0-0.2); Basophils % (A) 1 %; Eosinophils # (A) 0.4 k/uL (0-0.7); Eosinophils % (A) 5 %; HCT 40.8 % (34.0-46.0); HGB 13.2 gm/dL (11.4-16.0); Lymphocytes # (A) 2.2 k/uL (1.0-4.8); Lymphocytes % (A) 26 %; MCH 31.6 pg (25.0-35.0); MCHC 32.4 g/dL (31.0-37.0); MCV 97.5 fL (80.0-100.0); Mean Platelet Volume 10.1; Monocytes # (A) 0.5 k/uL (0-1.0); Monocytes % (A) 6 %; Neutrophils # (A) 5.2 k/uL (1.3-7.7); Neutrophils % (A) 60 %; Platelet Count 139 k/uL (150-450); RBC 4.19 m/uL (3.80-5.40); RDW 12.3 % (11.5-15.5); WBC 8.6 k/uL (3.8-10.6)
[2021-12-10 00:31] LABS: Appearance,Urine Clear (Clear); Bacteria,Urine Rare /hpf; Bilirubin,Urine Negative (Negative); Blood,Urine Trace (Negative); Color,Urine Light Yellow; Glucose,Urine (UA) Negative (Negative); Ketones,Urine Negative (Negative); Leukocyte Esterase,Urine Large (Negative); Mucus,Urine Rare /hpf; Nitrite,Urine Negative (Negative); PH, Urine 5.5 (5.0-8.0); Protein,Urine Negative (Negative); RBC,Urine 1 /hpf (0-5); Specific Gravity,Urine 1.021 (1.001-1.035); Squamous Epithelial Cell,Urine <1 /hpf (0-4); Urobilinogen,Urine <2.0 mg/dL (<2.0); WBC,Urine 20 /hpf (0-5)
--- NOTE | 2021-12-10 00:55 | US ---
EXAMINATION TYPE: US transvaginal DATE OF EXAM: 12/10/2021 COMPARISON: NONE CLINICAL HISTORY: bleeding. Language barrier. Patient states a little blood seen while wiping. Adrianna ent states "baby's house was removed". TECHNIQUE: Transvaginal (TV). Date of LMP: hysterectomy EXAM MEASUREMENTS: 1. Uterus: Surgically absent 2. Endometrium: Surgically absent 3. Right Ovary: Obscured by overlying bowel gas 4. Left Ovary: Obscured by overlying bowel gas 5. Bilateral Adnexa: no free fluid 6. Posterior cul-de-sac: no free fluid Cervix- possible partial cervix visualized? IMPRESSION: No free fluid in the pelvis. No evidence of a pelvic mass. Ovaries not seen.
[2021-12-10 00:58] LABS: Albumin 4.3 g/dL (3.5-5.0); Calcium 9.9 mg/dL (8.4-10.2); Potassium 4.2 mmol/L (3.5-5.1); Total Bilirubin 0.5 mg/dL (0.2-1.3); Total Protein 7.6 g/dL (6.3-8.2)
== END 2021-12-10 01:48 | disposition home or self-care (01) ==
LOC: EC 20:08
DX: N81.10 Cystocele, unspecified (principal); I10 Essential (primary) hypertension
CPT/HCPCS: 36415; 76830; 80053; 81001; 82150; 83690; 85025; 87086; 99284

== ENCOUNTER → 2021-12-09 | Outpatient (CLI) | payer MEDICARE ==
--- NOTE | 2021-12-09 10:50 | CT ---
EXAMINATION TYPE: CT chest w con DATE OF EXAM: 12/09/2021 COMPARISON: 09/06/2021 HISTORY: solitary lung nodule CT DLP: 645 mGycm Automated exposure control for dose reduction was used. TECHNIQUE: CT scan of the chest is performed with IV Contrast, patient injected with 100 mL of Isovue 300. MIP Images are created on CT scanner and reviewed. 3D reconstructed images are created on an independent workstation and reviewed. FINDINGS: LUNGS: 7 mm nodule superior segment left lower lobe stable. Mild hyperinflation. Mild central bronchi ectasis. No consolidative pneumonia or pleural effusion. Subpleural nodularity right lung apex 5 mm a lso stable and likely related to localized pleural thickening. MEDIASTINUM: There are no greater than 1 cm hilar or mediastinal lymph nodes heart size stable. Ttrac e of pericardial fluid. Aorta of normal caliber. OTHER: Hiatal hernia stable. Hypertrophic and degenerative changes of the spine. Bilateral renal par apelvic cysts suspected. IMPRESSION: 1. Stable subcentimeter pulmonary nodules unchanged from prior exam. Additional six-month follow-up r ecommended to confirm stability over the course of 2 years recommended.
== END | disposition home or self-care (01) ==
LOC: RADCTMAIN 09:06
PROVIDERS: ATTEND Family Medicine
DX: R91.8 Other nonspecific abnormal finding of lung field (principal)
CPT/HCPCS: 82565; 84520; 71260; 36415; Q9967